=== PATIENT | male | born 2005 | race Caucasian/White ===

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

== ENCOUNTER 2025-06-22 14:22 | Emergency (ER) | payer OTHER, SELFPAY ==
[2025-06-22 14:22] VITALS: BP 151/98; PULSE 71; RESP 16; TEMP 36.6; O2SAT 100
--- NOTE | 2025-06-22 14:28 | ED.RN ---
pt brought in by nurse unit manager who states no testing is required for the company. this nurse checked our intranet source, it does not contain the company name for info.
--- NOTE | 2025-06-22 14:54 | ED.RN ---
THIS NURSE CONTACTED RES AU[employer] FOR THE [facility] INJURY TO INQUIRE ON ANY DRUG TESTING POLICY. SPOKE WITH IAM GALINDO THE RESEARCH LAB ASSISTANT, WHO DENIED THE NEED FOR ANY DRUG TESTING. [employer]AM GAVE THIS NURSE THEIR POLICY NUMBER [id number]
--- NOTE | 2025-06-22 15:00 | RAD_ITS ---
PROCEDURE: FOOT MIN 3 VIEWS 06/22/2025 REASON FOR EXAM: PAIN, TRAUMA TECHNIQUE: FOOT MIN 3 VIEWS Laterality: Left foot COMPARISON: None FINDINGS: Bones: Nondisplaced fracture of the base of the 1st metatarsal. Joints: Normal alignment. Soft tissues: Soft tissue swelling. Other: RAD/Foot min 3 Views IMPRESSION: Nondisplaced transverse fracture at the base of the 1st metatarsal with overlyi ng soft tissue swelling. Reading Location: [id number]
--- NOTE | 2025-06-22 15:00 | RAD_ITS ---
PROCEDURE: ANKLE MIN 3 VIEWS 06/22/2025 REASON FOR EXAM: PAIN, TRAUMA Lateral ankle injury. TECHNIQUE: ANKLE MIN 3 VIEWS Laterality: Left ankle COMPARISON: None FINDINGS: Bones: No fracture is seen. Joints: Normal alignment. Mortise appears intact. No effusion. Soft tissues: Lateral soft tissue swelling. Other: RAD/Ankle min 3 Views IMPRESSION: Lateral soft tissue swelling. No fracture seen. Reading Location: [facility]
--- NOTE | 2025-06-22 15:07 | EDS_ITS ---
HPI History of Present Illness Chief Complaint: Lower Extremity Injury Narrative Narrative: Chief complaint and HPI: Left ankle injury. 20-year-old male with no significant past medical history presents for evaluation after left ankle injury at work. Patient states that he was helping bring out items for an auction when a tow strap got hooked on his left boot and his foot/ankle got pulled when the vehicle moved. He states that the strap ripped off of his boot and that he was not dr agged on the ground or underneath the vehicle. States he did not fall to the ground. States he developed immediate pain and swelling to the lateral aspect of his left ankle. He took Tylenol prior to arrival. He denies any numbness or tingling. He denies any knee pain. Has not applied ice. Obtained some abrasions to the foot but states he is up-to-date on tetanus. Review of systems: See HPI Medications: As listed on the chart Allergies: As listed on the chart PFSH: Per chart Vital signs: As listed on the chart. Reviewed. Physical exam: Gen: A&O x3, NAD Head: Normocephalic, atraumatic Eyes: No sclera icterus, conjunctiva clear ENT: Moist mucous membranes Neck: Full range of motion CV: Regular rate Resp: Nonlabored respirations Musc: Full ROM of all the extremities except for left ankle secondary to pain, swelling to the left ankle mostly located over the lateral malleolus where patient has the most tenderness, mild swelling to the dorsum of the foot, PT/DP pulses +2 bilaterally, good capillary refill, sensation intact, compartments soft, Achilles intact, no calcaneus tenderness, full range of motion of the knee without swelling or tenderness or instability Skin: Warm, dry, few scattered abrasions to the left foot without lacerations Neuro: Alert, oriented, grossly intact, sensation intact Psych: Cooperative, appropriate mood and affect [facility] Medic[facility] ?Medication ?Instructions ?Recorded ?Last Taken ?Type ondansetron 4 mg disintegrating 4 mg PO Q8H PRN nausea and 09/29/22 Unknown Rx tablet vomiting #10 tabs ondansetron 4 mg disintegrating 4 mg PO Q8H PRN PRN Na usea #10 tabs 06/22/25 Unknown Rx tablet oxycodone-acetaminophen 5 mg-325 1 tab PO Q6H PRN pain 3 days #12 08/27/25 Unknown Rx mg tablet (Percocet) tabs Allergy/AdvReac Type Severity Reaction Status Date / Time Environmental Allergies: Allergy Hives Verified 06/22/25 14:25 Uncoded (hayfever) Surgical History (Updated 06/22/25 @ 15:37 by Nhan Cherry) History of hip surgery Social History Smoking Status: Never smoker EXAM Physical Exam Const Vital Signs: 06/22/25 14:22 Temperature 97.9 F Temperature Source Oral Pulse Rate 71 Respiratory Rate 16 Blood Pressure 151/98 H Blood Pressure Mean 115 Pulse Ox 100 Oxygen Delivery Method Room Air MDM MDM MDM Narrative Medical decision making narrative: 20-year-old male with no significant past medical history presents for evaluation after left ankle injury at work. Patient states that he was helping bring out items for an auction when a tow strap got hooked on his left boot and his foot/ankle got pulled when the vehicle moved. Strap ripped off his boot and patient states he was not dragged and did not fall the ground. See physical exam findings. Differential diagnosis includes but is not limited to fracture, contusion, sprain. Ice applied to the swelling. Patient declined narcotics and states that his pain is controlled at this time. X-rays of the foot and ankle ordered. X-rays of the left foot and ankle were personally reviewed and interpreted by me, ED physician. No obvious fracture or dislocation of the tibia or fibula. Radiology in agreement. Lateral soft tissue swelling observed. Patient's ankle swelling is likely secondary to a sprain. X-ray of the left foot shows a first and second metatarsal transverse fracture. Radiology read states a nondisplaced transverse fracture of the base of the first metatarsal however there is a fracture of the second metatarsal as well. Given fractures, podiatry was consulted and patient was discussed with Dr. Browning. Dr. Browning reviewed the imaging. Agrees with the second metatarsal fracture. Recommends placing the patient in a posterior/sugar-tong splint with crutches versus a boot. Follow-up in his office. Patient tolerated splint placement well. Was neurovascular before and after the procedure. Patient given instructions on splint cares such as has to remain on at all times, cannot get wet, nonweightbearing to the left lower extremity. Crutches prescribed. Zofran and Percocet prescribed for home. Recommended Tylenol and ibuprofen. Stool softener to help with constipation. Follow-up with podiatry and Worker's [employer]. Was educated on compartment syndrome. Patient stable to discharge home. Splint placement Indication: Left 1st and 2nd metatarsal fractures Consent: Risks, benefits, and alternatives discussed with patient and consent obtained Procedure: Immobilization was performed using a sugar-tong and posterior splint. Splint was applied using splint stocking, web roll, Ortho-Glass, Adilson bandages. The extremity's neurovascular status was re-checked and was unchanged from the pre-procedure exam. The patient tolerated the procedure without complications. Impression: 1. Left 1st and 2nd metatarsal fractures, closed 2. Splint placement 3. Left ankle sprain Radiography Diagnostic Testing: Clinical Impression(s) from Imaging Studies Ankle X-Ray 06/22/25 15:00 IMPRESSION: Lateral soft tissue swelling. No fracture seen. Reading Location: [id number] Foot X-Ray 06/22/25 15:00 IMPRESSION: Nondisplaced transverse fracture at the base of the 1st metatarsal with overlying soft tissue swelling. Reading Location: [facility] Discharge Plan Triage Chief Complaint: Lower Extremity Injury ED Provider: Luiz Barcenas Dx/Rx/DC Orders Clinical Impression: Fracture of metatarsal of left foot, closed, Left ankle sprain Instructions: Splint Care, ED Fracture, Foot, ED Ankle Sprain (Adult), ED Compartment Syndrome, At Risk for Prescriptions: New oxycodone-acetaminophen [Percocet] 5-325 mg tablet 1 tab PO Q6H PRN (Reason: pain) 3 Days Qty: 12 0RF ondansetron 4 mg tablet,disintegrating 4 mg PO Q8H PRN PRN (Reason: Nausea) Qty: 10 0RF No Action ondansetron 4 mg tablet,disintegrating 4 mg PO Q8H PRN (Reason: nausea and vomiting) Qty: 10 0RF Primary Care Provider: Shaun Jones Referrals: [facility] [Group of Physicians] - 3-5 Days Monty Browning DPM [Med Staff - Active Staff] - 3-5 Days Activity Restrictions/Additional Instructions: You are nonweightbearing on your left lower extremity. Tylenol and ibuprofen for pain as well as Percocet for severe pain. Do not drive or operate a heavy machinery while taking Percocet. Zofran as needed for nausea. Monitor for compartment syndrome which we discussed. Splint needs to remain on at all times and cannot get wet. Follow-up with Worker's Compensation and podiatry. Call to make an appointment to be seen by podiatry. Narcotics can increase constipation. Recommend taking [id number] stool softener such as MiraLAX. Return back to the ED if symptoms change or worsen. Print Language: Yi Disposition Disposition: Home, Self Care
[2025-06-22 15:33] VITALS: BMI 23.0
[2025-06-22 16:30] VITALS: BP 137/78; PULSE 70; RESP 14; O2SAT 98
[2025-06-22 16:31] VITALS: BP 137/78; PULSE 70; RESP 14; TEMP 36.5; O2SAT 98
== END 2025-06-22 16:32 | disposition home or self-care (01) ==
PROVIDERS: Emergency Provider Surgery; PCP Pediatrics; Visit Provider Surgery
DX: S93.402A Sprain of unspecified ligament of left ankle, initial encounter (principal); S92.322A Displaced fracture of second metatarsal bone, left foot, initial encounter for closed fracture; S92.312A Displaced fracture of first metatarsal bone, left foot, initial encounter for closed fracture; X58.XXXA Exposure to other specified factors, initial encounter
CPT/HCPCS: 73610; 73630; 99283